=== PATIENT | female | born 1940 | race Caucasian/White ===

== ENCOUNTER → 2017-04-03 | Outpatient (CLI) | payer MEDICARE | LOC: RAD 14:54 | DX: M25.552 Pain in left hip (principal); M25.852 Other specified joint disorders, left hip | CPT/HCPCS: 73502 ==

== ENCOUNTER → 2021-01-09 | Outpatient (CLI) | payer MEDICARE | LOC: MAMO 13:41 | DX: Z12.31 Encounter for screening mammogram for malignant neoplasm of breast (principal); M81.0 Age-related osteoporosis without current pathological fracture; N95.1 Menopausal and female climacteric states; M85.88 Other specified disorders of bone density and structure, other site; Z80.3 Family history of malignant neoplasm of breast | CPT/HCPCS: 77063; 77067; 77080 ==